=== PATIENT | female | born 1965 | race Two or more races ===

== ENCOUNTER 2017-02-06 19:11 | Emergency (ER) | payer SELFPAY ==
[~2017-02-06] VITALS: Ht 160 cm; Wt 74.8 kg
[2017-02-06 19:15] VITALS: BP 154/101
[2017-02-06] MEDS ORDERED: Norco 5mg/325mg tab ORAL ONE (19:30)
[2017-02-06] MEDS ORDERED: Ketorolac 60mg Inj IM ONE (19:30)
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
[2017-02-06] MEDS ORDERED: ROBAXIN-750750 MG PO (20:20)
[2017-02-06] MEDS ORDERED: IBUPROFEN600 MG ORAL (20:20)
[2017-02-06 21:18] VITALS: BP 145/98
--- NOTE | 2017-02-07 09:09 | Diagnostic Imaging Report ---
Indication: PAIN posterior skull pain status post fall Technique: Continuous helical CT scanning of the head was performed without intravenous contrast material. Axial and coronal 5 mm sections were generated. Radiation dose was minimized using automated exposure control Dose: Total Dose Length Product - DLP [address] Dose Index - CTDIvol(s) 70.38 mGy. Comparison: None Findings: The ventricular system is normal in size and configuration. There is no shift of midline structures. No abnormal extra-axial fluid collections are noted. There is no evidence of intracerebral bleeding. No other abnormal high or low density areas are noted within the brain. There is a high parietal midline scalp hematoma. 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 Sinuses are unremarkable. Orbits are unremarkable. The mastoids are clear. Impression: Evidence of scalp soft tissue injury. 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 Chaudhari The CT scanner at [facility] is accredited by the [employer] and the scans are performed using protocols designed to limit radiation exposure to as low as reasonably achievable to attain images of sufficient resolution adequate for diagnostic evaluation.
--- NOTE | 2017-02-07 10:08 | Diagnostic Imaging Report ---
Indication: Pain, status post fall Technique: One view of the pelvis Comparison: None Findings: No acute fractures. No dislocations. Joint spaces are preserved Impression: Negative
== END 2017-02-06 21:18 | disposition home or self-care (01) ==
LOC: EDBD 19:11 → EMR 19:23
DX: S00.03XA Contusion of scalp, initial encounter (principal); R10.2 Pelvic and perineal pain; W19.XXXA Unspecified fall, initial encounter; Y93.9 Activity, unspecified; Y92.811 Bus as the place of occurrence of the external cause
CPT/HCPCS: 70450; 72170; 96372; 99284

== ENCOUNTER 2017-02-10 13:17 | Emergency (ER) | payer SELFPAY ==
[~2017-02-10] VITALS: Ht 157.5 cm; Wt 63.5 kg
[~2017-02-10 13:17] MED LIST: IBUPROFEN600 MG ORAL; ROBAXIN-750750 MG PO
[2017-02-10 13:41] VITALS: BP 159/90
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
[2017-02-10] MEDS ORDERED: Oxycodone/Acetaminophen 5-325 ORAL ONE (14:00)
[2017-02-10 14:12] VITALS: BP 142/91
[2017-02-10 14:13] VITALS: BP 159/90
== END 2017-02-10 14:14 | disposition home or self-care (01) ==
LOC: EMR 13:52
DX: R51 Headache (principal); S00.03XA Contusion of scalp, initial encounter; X58.XXXA Exposure to other specified factors, initial encounter; Y92.9 Unspecified place or not applicable; R42 Dizziness and giddiness
CPT/HCPCS: 99282